=== PATIENT | female | born 1995 | race African-American/Black ===

== ENCOUNTER → 2017-06-18 15:09 | Emergency (ER) | payer OTHER ==
--- NOTE | 2017-06-18 15:21 | ED ---
Psychiatric Complaint - HPI Summary HPI Summary: Per patient she feels like she is showing signs of a sociopath. Denies SI or HI. States she may be bipolar like her sister. She continues to state she thinks she has something wrong with her thyroid as she "just doesn't feel right. " She fails to elaborate stating "its such a long story" and would like to speak with the psychiatrist about receiving help. Denies self harm, depression , anxiety, SI or HI. She has been otherwise healthy and takes no medications. Denies ETOH . Endorses marijuana use. Denies previous history with psych. - History Of Current Complaint Chief Complaint: EDMentalHealth Time Seen by Provider: 06/18/17 15:15 Hx Obtained From: Patient ?: No Onset/Duration: Gradual Onset Timing: Constant Severity Initially: Moderate Severity Currently: Moderate Character: Frustrated Aggravating Factor(s): Nothing Alleviating Factor(s): Nothing Associated Signs And Symptoms: Positive: Confused, Paranoid Behavior - Risk Factor(s) Completed Suicide Risk Factors: Negative PMH/Surg Hx/FS Hx/Imm Hx Previously Healthy: Yes - Immunization History Hx Pertussis Vaccination: No Immunizations Up to Date: Unable to Obtain/Confirm Infectious Disease History: No Infectious Disease History: Denies: Traveled Outside the [place] in Last 30 Days - Social History Occupation: Employed Part-time Lives: Dormitory/Roommates Alcohol Use: None Hx Substance Use: Yes Substance Use Type: Reports: Marijuana Hx Tobacco Use: No Smoking Status (MU): Never Smoked Tobacco Do You Chew or Dip Tobacco: No Review of Systems Constitutional: Negative Negative: Fever, Chills, Fatigue Eyes: Negative Cardiovascular: Negative Respiratory: Negative Genitourinary: Negative Positive: no symptoms reported, see HPI Musculoskeletal: Negative Skin: Negative Neurological: Negative Positive: Other - confused All Other Systems Reviewed And Are Negative: Yes Physical Exam Triage Information Reviewed: Yes Vital Signs On Initial Exam: Initial Vitals Temp Pulse Resp BP Pulse Ox 97.5 F 80 20 140/69 97 06/18/17 15:12 06/18/17 15:12 06/18/17 15:12 06/18/17 15:12 06/18/17 15:12 Vital Signs Reviewed: Yes Appearance: Positive: Well-Appearing, Well-Nourished Skin: Positive: Warm, Skin Color Reflects Adequate Perfusion Head/Face: Positive: Normal Head/Face Inspection Eyes: Positive: EOMI, GEOVANNA, Conjunctiva Clear Neck: Positive: Supple, Nontender, No Lymphadenopathy Respiratory/Lung Sounds: Positive: Clear to Auscultation, Breath Sounds Present Cardiovascular: Positive: Normal, RRR, Pulses are Symmetrical in both Upper and Lower Extremities Musculoskeletal: Positive: Normal, Strength/ROM Intact Neurological: Positive: Speech Normal Psychiatric: Positive: Affect/Mood Appropriate AVPU Assessment: Alert Diagnostics - Vital Signs Vital Signs Temp Pulse Resp BP Pulse Ox 06/18/17 15:12 97.5 F 80 20 140/69 97 - Laboratory Result Diagrams: 06/18/17 16:35 06/18/17 16:35 Lab Statement: Any lab studies that have been ordered have been reviewed, and results considered in the medical decision making process. Course/Dx - Course Course Of Treatment: Patient evaluated for feeling "off" lately. Denies drug or ETOH use. Denies physical pain. She is cleared for MHU. Dr. Still discharges patient with cannibus abuse. - Differential Dx/Clinical Impression Differential Diagnosis/HQI/PQRI: Positive: Acute Psychosis, Anxiety Provider Diagnosis: Cannabis use disorder, mild, abuse Discharge - Discharge Plan Condition: Stable Disposition: HOME Patient Education Materials: Mood Disorders (ED), Cannabis Abuse (ED) Referrals: Oneil LOWE,Antonia Ha [Primary Care Provider] -
[2017-06-18 16:44] LABS: Urine Bilirubin Negative (Negative); Urine Glucose Negative (Negative); Urine Nitrite Negative (Negative)
[2017-06-18 16:51] LABS: Hematocrit 38 % (35-47); Hemoglobin 12.2 g/dl (12.0-16.0); Mean Corpuscular HGB Conc 32 g/dl (31-36); Mean Corpuscular Hemoglobin 26 pg (27-31); Mean Corpuscular Volume 82 fL (80-97); Mean Platelet Volume 9 um3 (7.4-10.4); Red Cell Distribution Width 15 % (10.5-15); White Blood Count 8.4 10^3/ul (3.5-10.8)
[2017-06-18 17:01] LABS: ALT 19 U/L (7-52); AST 24 U/L (13-39); Albumin 4.4 g/dL (3.2-5.2); Alkaline Phosphatase 74 U/L (34-104); Anion Gap 5 mmol/L (2-11); BUN/Creatinine Ratio 6.6 (8-20); Blood Urea Nitrogen 6 mg/dL (6-24); CO2 Carbon Dioxide 26 mmol/L (22-32); Calcium 9.6 mg/dL (8.6-10.3); Chloride 104 mmol/L (101-111); EGFR African American 102.4 (>60); EGFR Non-African American 79.6 (>60); Glucose 91 mg/dL (70-100); Potassium 3.7 mmol/L (3.5-5.0); Sodium 135 mmol/L (133-145); Total Protein 8.4 g/dL (6.4-8.9)
[2017-06-18 17:04] LABS: Benzodiazepine Urine Screen None Detected (None Detect)
[2017-06-18 17:14] LABS: Acetaminophen < 15 mcg/mL; Alcohol < 10 mg/dL (<10); Salicylate < 2.50 mg/dL (<30)
[2017-06-18 21:19] VITALS: BP 143/81
== END | disposition home or self-care (01) ==
LOC: ED 15:09
DX: F12.90 Cannabis use, unspecified, uncomplicated (principal)
CPT/HCPCS: 36415; 80053; 80307; 80320; 80329; 81003; 84443; 85025; 99285; G0480

== ENCOUNTER 2017-10-26 16:00 | Emergency (ER) | payer OTHER ==
--- NOTE | 2017-10-26 18:51 | ED ---
GI/ HPI - HPI Summary HPI Summary: 22 female presents to ED with complaints of "having my period for ~14 days". States she has been bleeding on and off. States she has had irregular cycle in the past however does not recall ever having it last as long as this. PMHx significant for PCOS. She does not take any medication, no control. Denies any abdominal pain, urinary symptoms or genitalia symptoms. No concern for vaginal discharge, itching, infection or STD concern. Denies concern for . No fever/chills, nausea of vomiting. Denies lightheadedness, decreased appetite or other symptoms. No medications. Normal bowel movements. States she soaks through a ultra tampon over 4-5 hours. - History of Current Complaint Chief Complaint: EDOBProblems Time Seen by Provider: 10/26/17 18:44 Stated Complaint: VAGINAL BLEEDING Hx Obtained From: Patient Onset/Duration: Started Weeks Ago - 2, Still Present Timing: Constant Severity: Mild Current Severity: Mild Vaginal Bleeding Description: Brownish-Red Number of Pads per Hour: 1 Pain Intensity: 0 Location of Pain: None - Physical Pain Characteristics: Other: - none Associated Signs and Symptoms: Positive: Negative Additional Signs & Symptoms: Positive: Vaginal Bleeding Aggravating Factor(s): Nothing Alleviating Factor(s): Nothing - Allergy/Home Medications Allergies/Adverse Reactions: Allergies Allergy/AdvReac Type Severity Reaction Status Date / Time metformin Allergy Unknown Verified 10/26/17 19:09 Reaction Details PMH/Surg Hx/FS Hx/Imm Hx Endocrine/Hematology History: Denies: Hx Anticoagulant Therapy, Hx Diabetes Cardiovascular History: Denies: Hx Hypertension Respiratory History: Denies: Hx Asthma Psychiatric History: Denies: Hx Eating Disorder - Surgical History Surgery Procedure, Year, and Place: none - Immunization History Immunizations Up to Date: Yes Infectious Disease History: No Infectious Disease History: Denies: Traveled Outside the [place] in Last 30 Days - Family History Known Family History: Positive: None - Social History Alcohol Use: None Hx Substance Use: Yes Substance Use Type: Reports: Marijuana Hx Tobacco Use: No Smoking Status (MU): Never Smoked Tobacco Review of Systems Constitutional: Negative Cardiovascular: Negative Respiratory: Negative Gastrointestinal: Negative Positive: see HPI, other - vaginal bleeding Musculoskeletal: Negative Neurological: Negative All Other Systems Reviewed And Are Negative: Yes Physical Exam Triage Information Reviewed: Yes Vital Signs On Initial Exam: Initial Vitals Temp Pulse Resp BP Pulse Ox 98.5 F 95 18 124/108 99 10/26/17 16:01 10/26/17 16:01 10/26/17 16:01 10/26/17 16:01 10/26/17 16:01 BP 124/90 Vital Signs Reviewed: Yes Appearance: Positive: Well-Appearing, No Pain Distress, Well-Nourished Skin: Positive: Warm, Skin Color Reflects Adequate Perfusion, Dry. Negative: Cold, Numb, Cyanosis @, Pale, Erythema @ Head/Face: Positive: Normal Head/Face Inspection Eyes: Positive: Conjunctiva Clear ENT: Positive: Hearing grossly normal Neck: Positive: Supple Respiratory/Lung Sounds: Positive: Clear to Auscultation, Breath Sounds Present. Negative: Rales, Rhonchi, Wheezes Cardiovascular: Positive: Normal, RRR, Pulses are Symmetrical in both Upper and Lower Extremities. Negative: Murmur, Rub Abdomen Description: Positive: Nontender, No Organomegaly, Soft. Negative: Bruit, CVA Tenderness (R), CVA Tenderness (L), Distended, Guarding, McBurney's Point Tenderness, Peritoneal Signs Bowel Sounds: Positive: Present Pelvic Exam: Positive: External Exam Normal - per patient, deferred exam, Active Bleeding Musculoskeletal: Positive: Normal, Strength/ROM Intact Neurological: Positive: Normal, Sensory/Motor Intact, Alert, Oriented to Person Place, Time, Normal Gait Diagnostics - Vital Signs Vital Signs Temp Pulse Resp BP Pulse Ox 10/26/17 16:01 98.5 F 95 18 124/108 99 - Laboratory Result Diagrams: 10/26/17 19:10 10/26/17 19:10 Lab Statement: Any lab studies that have been ordered have been reviewed, and results considered in the medical decision making process. - Ultrasound No standard instances Ultrasound Interpretation: Positive (See Comments) - 2.9 CM RIGHT OVARIAN CYST LIKELY REPRESENTING A PHYSIOLOGIC CYST. Ultrasound Interpretation Completed By: Radiologist Re-Evaluation - Re-Evaluation First Eval Re-Evaluation Time: 20:00 Change: Improved - feeling fine and asymptomatic updated on any imaging and lab results agrees with plan and ready to be discharged GIGU Course/Dx - Course Course Of Treatment: Labs obtained and unremarkable. HCG obtained and negative. Patient deferred pelvic exam. Appears to be experiencing menorrhagia. Ultrasound obtained showing right ovarian cyst without complication. Follow-up with DIRECTOR OF [employer]ATE[employer]IC [employer]. Did explain oral contraceptives sometimes can help irregular cycles. Did also discuss complications of PCOS and /or ovarian cyst. Patient however does not want to take control. Increase fluid intake and eat sufficient amounts of iron. Aware worsening signs and symptoms to watch out for. No other concerns at this time. Normal physical exam and vital signs otherwise. Ibuprofen/Tylenol as needed for any discomfort due to right ovarian cyst. - Diagnoses Differential Diagnoses - Female: Other - Menorrhagia, vaginal bleeding Provider Diagnoses: Menorrhagia with irregular cycle, Ovarian cyst Discharge - Sign-Out/Discharge Documenting (check all that apply): Discharge - Discharge Plan Condition: Good Disposition: HOME Patient Education Materials: Ovarian Cyst (ED), Polycystic Ovarian Syndrome (ED ), Menorrhagia (ED) Referrals: Oneil LOWE,Antonia Ha [Primary Care Provider] - Additional Instructions: Increase fluid intake. Eat lots of iron containing foods such as spinach and leafy greens. Follow up with OBGYN tomorrow, call to make an appointment. Any new or worsening symptoms please seek medical attention as we discussed. - Billing Disposition and Condition Condition: GOOD Disposition: HOME
[2017-10-26 19:25] LABS: ABS Basophils 0 10^3/ul (0-0.2); ABS Eosinophils 0.2 10^3/ul (0-0.6); ABS Lymphocytes 3.2 10^3/ul (1.0-4.8); ABS Monocytes 0.7 10^3/ul (0-0.8); ABS Neutrophils 4.7 10^3/ul (1.5-7.7); ABS Nucleated RBC 0 10^3/ul; Eosinophil % 2.3 % (0-6); Hematocrit 38 % (35-47); Hemoglobin 12.3 g/dl (12.0-16.0); Lymphocyte % 36.2 % (25-47); Mean Corpuscular HGB Conc 33 g/dl (31-36); Mean Corpuscular Hemoglobin 27 pg (27-31); Mean Corpuscular Volume 82 fL (80-97); Mean Platelet Volume 8.7 um3 (7.4-10.4); Nucleated Red Blood Cells % 0.1; Platelet Count 224 10^3/ul (150-450); Red Blood Count 4.59 10^6/ul (4.0-5.4); Red Cell Distribution Width 15 % (10.5-15); White Blood Count 8.7 10^3/ul (3.5-10.8)
[2017-10-26 19:42] LABS: EGFR Non-African American 70.7 (>60)
--- NOTE | 2017-10-26 20:05 | RAD ---
INDICATION: Vaginal bleeding for 2 weeks. COMPARISON: There are no prior studies available for comparison. TECHNIQUE: Multiple real-time transvaginal images of the pelvis were obtained. FINDINGS: The uterus is retroverted and normal in size and shape. The uterus measured 6.6 x 3.5 x 4.3 cm. The endometrial echo measured 0.9 cm in thickness. The right ovary measured 5.7 x 4.8 x 4.6 cm. The left ovary measured 2.9 x 2.2 x 1.9 cm. There is vascular flow within both ovaries. There is a 3.9 x 4.1 x 3.7 cm simple appearing right ovarian cyst. There is a small amount of free intraperitoneal fluid in the cul-de-sac. IMPRESSION: 2.9 CM RIGHT OVARIAN CYST LIKELY REPRESENTING A PHYSIOLOGIC CYST.
[2017-10-26 21:19] VITALS: BP 124/90
== END 2017-10-26 21:18 | disposition home or self-care (01) ==
LOC: ED 16:00
DX: N92.1 Excessive and frequent menstruation with irregular cycle (principal); N83.291 Other ovarian cyst, right side; Z32.02 Encounter for pregnancy test, result negative; Z88.8 Allergy status to other drugs, medicaments and biological substances
CPT/HCPCS: 36415; 76830; 80053; 83605; 84702; 85025; 99282

== ENCOUNTER → 2018-08-09 14:36 | Emergency (ER) | payer BC, OTHER ==
[~2018-08-09 14:36] MED LIST: Ondansetron ODT TAB* 4 MG PO ONE
[2018-08-09 16:21] LABS: ABS Basophils 0.1 10^3/ul (0-0.2); ABS Eosinophils 0 10^3/ul (0-0.6); ABS Lymphocytes 1.3 10^3/ul (1.0-4.8); ABS Monocytes 0.7 10^3/ul (0-0.8); ABS Neutrophils 7.9 10^3/ul (1.5-7.7); ABS Nucleated RBC 0 10^3/ul; Eosinophil % 0 %; Hematocrit 39 % (35-47); Hemoglobin 12.5 g/dl (12.0-16.0); Lymphocyte % 13.4 %; Mean Corpuscular HGB Conc 32 g/dl (31-36); Mean Corpuscular Hemoglobin 27 pg (27-31); Mean Corpuscular Volume 82 fL (80-97); Mean Platelet Volume 8.2 fL (7.4-10.4); Nucleated Red Blood Cells % 0.1; Platelet Count 225 10^3/ul (150-450); Red Blood Count 4.72 10^6/ul (4.00-5.40); Red Cell Distribution Width 16 % (10.5-15)
[2018-08-09 16:45] LABS: ALT 12 U/L (7-52); AST 17 U/L (13-39); Albumin 4.6 g/dL (3.2-5.2); Albumin/Globulin Ratio 1.3 (1-3); Alkaline Phosphatase 63 U/L (34-104); Anion Gap 9 mmol/L (2-11); BUN/Creatinine Ratio 8.5 (8-20); Blood Urea Nitrogen 7 mg/dL (6-24); C Reactive Protein 1.67 mg/L (<8.01); CO2 Carbon Dioxide 24 mmol/L (22-32); Calcium 9.7 mg/dL (8.6-10.3); Chloride 105 mmol/L (101-111); EGFR African American 106.5 (>60); Globulin 3.5 g/dL (2-4); Glucose 102 mg/dL (70-100); Potassium 4.1 mmol/L (3.5-5.0); Sodium 138 mmol/L (135-145); Total Protein 8.1 g/dL (6.4-8.9)
[2018-08-09 16:47] LABS: HCG Pregnancy < 0.60 mIU/mL
--- NOTE | 2018-08-09 16:57 | ED ---
GI/ HPI - HPI Summary HPI Summary: Patient is a 23 y/o F presenting to ED with complaints of vomiting, abdominal cramping, and chills since 0 last night. She denies diarrhea, notes that she experiences cramping after standing up. In room, she denies nausea at present. On triage, pain is rated 3/10, nothing is noted to aggravate/alleviate Sx, it is noted that patient took pepto [employer] but vomited it up. Home medications and allergies are reviewed. - History of Current Complaint Chief Complaint: EDNauseaVomitDiarrh Time Seen by Provider: 08/09/18 14:58 Stated Complaint: VOMITING Hx Obtained From: Patient Onset/Duration: Started Hours Ago - last night 2199, Still Present Timing: Constant, Lasting Hours - last night 2199 Current Severity: Mild - 3/10 Pain Intensity: 3 Location of Pain: Diffuse Associated Signs and Symptoms: Positive: Vomiting, Chills, Other: - abdominal cramping. Negative: Nausea - at present, Diarrhea Aggravating Factor(s): Movement, Movement Alleviating Factor(s): Nothing - Allergy/Home Medications Allergies/Adverse Reactions: Allergies Allergy/AdvReac Type Severity Reaction Status Date / Time metformin Allergy Unknown Verified 08/09/18 14:45 Reaction Details PMH/Surg Hx/FS Hx/Imm Hx Endocrine/Hematology History: Denies: Hx Anticoagulant Therapy, Hx Diabetes Cardiovascular History: Denies: Hx Hypertension Respiratory History: Denies: Hx Asthma Psychiatric History: Denies: Hx Eating Disorder - Surgical History Surgery Procedure, Year, and Place: none Infectious Disease History: No Infectious Disease History: Denies: Traveled Outside the [place] in Last 30 Days - Family History Known Family History: Negative: Hypertension, Diabetes - Social History Alcohol Use: None Hx Substance Use: Yes Substance Use Type: Reports: None Hx Tobacco Use: No Smoking Status (MU): Never Smoked Tobacco Review of Systems Positive: Chills Positive: Vomiting, Other - POSITIVE - ABDOMINAL CRAMPING . Negative: Diarrhea , Nausea - at present All Other Systems Reviewed And Are Negative: Yes Physical Exam - Summary Physical Exam Summary: Appearance: Well appearing, no pain distress Skin: warm, dry, reflects adequate perfusion Head/face: normal Eyes: EOMI, GEOVANNA ENT: normal Neck: supple, non-tender Respiratory: CTA, breath sounds present Cardiovascular: RRR, pulses symmetrical Abdomen: non-tender, soft Musculoskeletal: normal, strength/ROM intact Neuro: normal, sensory motor intact, A&Ox3 Triage Information Reviewed: Yes Vital Signs On Initial Exam: Initial Vitals Temp Pulse Resp BP Pulse Ox 98.6 F 59 18 122/75 98 08/09/18 14:42 08/09/18 14:42 08/09/18 14:42 08/09/18 14:42 08/09/18 14:42 Vital Signs Reviewed: Yes Diagnostics - Vital Signs Vital Signs Temp Pulse Resp BP Pulse Ox 08/09/18 14:42 98.6 F 59 18 122/75 98 - Laboratory Lab Results: Lab Results 08/09/18 08/09/18 08/09/18 Range/Units 16:10 16:10 16:10 WBC 10.0 (3.5-10.8) 10^3/ul RBC 4.72 (4.00-5.40) 10^6/ul Hgb 12.5 (12.0-16.0) g/dl Hct 39 (35-47) % MCV 82 (80-97) fL MCH 27 (27-31) pg MCHC 32 (31-36) g/dl RDW 16 H (10.5-15) % Plt Count 225 (150-450) 10^3/ul MPV 8.2 (7.4-10.4) fL Neut % (Auto) 78.9 % Lymph % (Auto) 13.4 % [place] % (Auto) 7.2 % Eos % (Auto) 0 % Baso % (Auto) 0.5 % Absolute Neuts (auto) 7.9 H (1.5-7.7) 10^3/ul Absolute Lymphs (auto) 1.3 (1.0-4.8) 10^3/ul Absolute Monos (auto) 0.7 (0-0.8) 10^3/ul Absolute Eos (auto) 0 (0-0.6) 10^3/ul Absolute Basos (auto) 0.1 (0-0.2) 10^3/ul Absolute Nucleated RBC 0 10^3/ul Nucleated RBC % 0.1 Sodium 138 (135-145) mmol/L Potassium 4.1 (3.5-5.0) mmol/L Chloride 105 (101-111) mmol/L Carbon Dioxide 24 (22-32) mmol/L Anion Gap 9 (2-11) mmol/L BUN 7 (6-24) mg/dL Creatinine 0.82 (0.51-0.95) mg/dL Est GFR ( Amer) 106.5 (>60) Est GFR (Non-Af Amer) 88.0 (>60) BUN/Creatinine Ratio 8.5 (8-20) Glucose 102 H (70-100) mg/dL Lactic Acid < 0.3 L (0.5-2.0) mmol/L Calcium 9.7 (8.6-10.3) mg/dL Total Bilirubin 0.40 (0.2-1.0) mg/dL AST 17 (13-39) U/L ALT 12 (7-52) U/L Alkaline Phosphatase 63 (34-104) U/L C-Reactive Protein 1.67 (<8.01) mg/L Total Protein 8.1 (6.4-8.9) g/dL Albumin 4.6 (3.2-5.2) g/dL Globulin 3.5 (2-4) g/dL Albumin/Globulin Ratio 1.3 (1-3) Lipase 13 (11.0-82.0) U/L Beta HCG, Quant < 0.60 mIU/mL Result Diagrams: 08/09/18 16:10 08/09/18 16:10 Lab Statement: Any lab studies that have been ordered have been reviewed, and results considered in the medical decision making process. - Radiology ABDOMEN X-RAY Radiology Interpretation Completed By: Radiologist Summary of Radiographic Findings: ABDOMEN X-RAY IMPRESSION:Normal KUB. THIS REPORT WAS REVIEWED BY ED PHYSICIAN. GIGU Course/Dx - Course Course Of Treatment: Patient is a 23 y/o F presenting to ED with complaints of vomiting, abdominal cramping, and chills since 2200 last night. She denies diarrhea, notes that she experiences cramping after standing up. In room, she denies nausea at present. Physical exam is normal. Bloodwork, UA is received. During ED course, patient received Zofran 4 mg PO. ABDOMEN X-RAY IMPRESSION: Normal KUB. Patient will be discharged to home and follow up with PCP in three days, she is agreeable with this plan. - Diagnoses Differential Diagnoses - Female: Vomiting Provider Diagnoses: Vomiting Discharge - Sign-Out/Discharge Documenting (check all that apply): Patient Departure - discharge Patient Received Moderate/Deep Sedation with Procedure: No - NO PROCEDURES DONE - Discharge Plan Condition: Stable Disposition: HOME Prescriptions: Ondansetron ODT TAB* [Zofran 4 MG Odt TAB*] 4 mg PO Q8H PRN #15 tab.odt MDD 3 PRN Reason: Vomiting Patient Education Materials: Acute Nausea and Vomiting (ED) Forms: *Work Release Referrals: [facility] [Outside] - 3 Days Additional Instructions: RETURN TO ED WITH ANY NEW OR WORSENING SYMPTOMS. FOLLOW UP WITH PRIMARY CARE PHYSICIAN WITHIN THREE DAYS. - Billing Disposition and Condition Condition: STABLE Disposition: Home - Attestation Statements Document Initiated by Scribe: Yes Documenting Scribe: NIKKI SUMNER Provider For Whom Eleonora is Documenting (Include Credential): FELIX SALAZAR MD Scribe Attestation: NIKKI Devine scribed for FELIX SALAZAR MD on 08/09/18 at 1836. Scribe Documentation Reviewed: Yes Provider Attestation: The documentation as recorded by the NIKKI encarnacion accurately reflects the service I personally performed and the decisions made by , FELIX SALAZAR MD Status of Scribe Document: Viewed
[2018-08-09 17:16] LABS: Urine Appearance Cloudy; Urine Bacteria Absent (Absent); Urine Bilirubin Negative (Negative); Urine Blood 3+ (Negative); Urine Color Yellow; Urine Glucose Negative (Negative); Urine Ketones 2+ (Negative); Urine Nitrite Negative (Negative); Urine Protein 1+(30 mg/dL) (Negative); Urine Red Blood Cell 2+(6-10/hpf) (Absent); Urine Specific Gravity 1.032 (1.010-1.030); Urine Squamous Epithelial Cell Present (Absent); Urine Urobilinogen Negative (Negative); Urine White Blood Cell 1+(6-10/hpf) (Absent)
[2018-08-09 17:45] VITALS: BP 115/60
== END | disposition home or self-care (01) ==
LOC: ED 14:36
DX: R11.10 Vomiting, unspecified (principal); R10.9 Unspecified abdominal pain
CPT/HCPCS: 36415; 74018; 80053; 81003; 81015; 83605; 83690; 84702; 85025; 86140; 87086; 99282; A9270-GY